=== PATIENT | male | born 1965 | race Caucasian/White ===

== ENCOUNTER 2020-07-24 16:55 | Outpatient (CLI) | payer BC, SELFPAY ==
[2020-07-24 17:22] LABS: Basophils Absolute Auto 0.1 K/mm3 (0.0-0.1); Basophils Percent Auto 0.7 % (0.2-1.2); Eosinophils Absolute Auto 0.2 K/mm3 (0-0.3); Eosinophils Percent Auto 1.9 % (0-4.4); Hematocrit 43.5 % (42.0-52.0); Hemoglobin 14.8 g/dL (14.0-18.0); Immature Granulocyte Absolute 0.02 K/mm3 (0.00-0.031); Immature Granulocyte Percent A 0.2 % (0-0.5); Lymphocytes Absolute Auto 2.23 K/mm3 (0.9-3.2); Lymphocytes Percent Auto 26.6 % (18.3-44.2); Mean Corpuscular Volume 85.1 fl (80-100); Mean Platelet Volume 10.9 fl (7.4-10.4); Monocytes Absolute Auto 0.9 K/mm3 (0.1-0.6); Monocytes Percent Auto 10.9 % (2.6-8.5); Neutrophils Percent Auto 59.7 % (45.5-73.1); Platelet Count Result 231 k/mm3 (150-375); Red Blood Count 5.11 M/mm3 (4.6-6.20); Red Cell Distribution Width 13.7 % (11.5-14.5); White Blood Count 8.4 K/mm3 (4.5-10.0)
[2020-07-24 17:34] LABS: Alanine Aminotransferase 21 U/L (4-50); Albumin Level 4.1 g/dL (3.5-5.1); Alkaline Phosphatase 73 U/L (38-126); Amylase 48 U/L (30-110); Anion Gap 5 mmol/L (8-16); Aspartate Amino Transferase 22 U/L (17-59); Bilirubin,Total 0.5 mg/dL (0.2-1.3); Blood Urea Nitrogen 19 mg/dL (9-20); Calcium 8.8 mg/dL (8.4-10.2); Carbon Dioxide 27 mmol/L (22-30); Chloride 105 mmol/L (98-107); Estimated Glomerular Filt Rate > 60; Glucose 93 mg/dL (75-110); Lipase 35 U/L (23-300); Potassium 3.7 mmol/L (3.4-5.0); Sodium 137 mmol/L (137-145)
== END 2020-07-24 16:56 | disposition home or self-care (01) ==
LOC: ANHLAB 16:58
PROVIDERS: PCP Internal Medicine; Visit Provider Internal Medicine
DX: K92.1 Melena (principal); R10.13 Epigastric pain
CPT/HCPCS: 36415; 80053; 82150; 83690; 85025

== ENCOUNTER 2021-01-28 17:00 | Emergency (ER) | payer BC, SELFPAY ==
[2021-01-28 17:18] VITALS: BP 155/88; PULSE 65; RESP 16; TEMP 36.4; O2SAT 99
--- NOTE | 2021-01-28 17:53 | ED.GENADULT ---
HPI - General Adult General Chief complaint: Wound/Laceration Stated complaint: finger laceration Time Seen by Provider: 01/28/21 17:20 Source: patient Mode of arrival: ambulatory Limitations: no limitations History of Present Illness HPI narrative: Patient presents with chief complaint of laceration to the tip of his right third digit that he sustained while using a razor blade. Patient reports bleeding to the area. 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 Patient states that he is not up-to-date on his tetanus. Patient denies any other injuries or symptoms. Patient states that he is not on any blood thinners. Related Data Home Medications Medication Instructions Recorded Confirmed amlodipine 01/28/21 01/28/21 omeprazole 01/28/21 Allergies Allergy/AdvReac Type Severity Reaction Status Date / Time codeine Allergy Intermediate STOMACH Verified 06/17/18 08:53 CRAMPS Review of Systems Review of Systems: Narrative: CONSTITUTIONAL: Denies fever, chills, or sweats. EYES: Denies visual changes, redness, or discharge. ENT: Denies rhinorrhea, congestion, sore throat, or otalgia. CARDIOVASCULAR: Denies chest pain, palpitations, or edema. RESPIRATORY: Denies cough or dyspnea. GASTROINTESTINAL: Denies abdominal pain, nausea, vomiting, or diarrhea. GENITOURINARY: Denies dysuria or hematuria. SKIN: Reports laceration Denies rash or itching. MUSCULOSKELETAL: Denies back pain, myalgia, or joint pain NEUROLOGIC: Denies headache, numbness, dizziness, or weakness. PSYCHIATRIC: Denies anxiety or depression. [facility] Social History Social History Gender identity (if verbalized by the patient): Male Exam Narrative: Exam Narrative: GENERAL: Well-appearing, well-nourished. HEAD: Normocephalic, atraumatic. EYES: PERRLA and EOMI. NECK: Supple. No adenopathy or masses. No vertebral tenderness or loss of ROM. CHEST: Clear to auscultation. No respiratory distress. No wheezes rales or rhonchi HEART: Regular rate and rhythm. Normal peripheral pulses. EXTREMITIES: No acute changes in ROM. No edema. SKIN: avulsion laceration to the distal tip of the right 3rd digit. Active bleeding. right 4th and fifth digits are absent, dry, no rash. NEURO: No focal deficits. Alert and oriented x3. PSYCH: Normal mood and affect. Course Vital Signs Vital signs: Vital Signs Temperature 97.6 F 01/28/21 17:18 Pulse Rate 65 01/28/21 17:18 Respiratory Rate 16 01/28/21 17:18 Blood Pressure 155/88 H 01/28/21 17:18 Pulse Oximetry 99 01/28/21 17:18 Temperature 97.6 F 01/28/21 17:18 Pulse Rate 65 01/28/21 17:18 Respiratory Rate 16 01/28/21 17:18 Blood Pressure 155/88 H 01/28/21 17:18 Pulse Oximetry 99 01/28/21 17:18 Medical Decision Making MDM Narrative Medical decision making narrative: Surgicel applied to area of laceration as it is an avulsion and there is not any area to suture. Pressure dressing applied as there is still some bleeding. Patient instructed to keep dressing in place for 24 hours then given wound care instructions. Patient given his Tdap injection. Patient instructed to follow-up with primary care for any signs of infection present. Patient instructed to return to emergency department if he has any emergent symptoms. Vital Signs Vital Signs: Vital Signs Temperature 97.6 F 01/28/21 17:18 Pulse Rate 65 01/28/21 17:18 Respiratory Rate 16 01/28/21 17:18 Blood Pressure 155/88 H 01/28/21 17:18 Pulse Oximetry 99 01/28/21 17:18 Temperature 97.6 F 01/28/21 17:18 Pulse Rate 65 01/28/21 17:18 Respiratory Rate 16 01/28/21 17:18 Blood Pressure 155/88 H 01/28/21 17:18 Pulse Oximetry 99 01/28/21 17:18 Discharge Plan Discharge Clinical Impression: Avulsion of skin Patient Disposition: Home, Self-Care Condition: Improved Instructions: Antibiotic Form, Skin Avulsion (ED) Additional Instruction
[2021-01-28] MEDS: TETANUS,DIPHTHERIA,AC PERTUSSIS ADULT (0.5 ML) BOOSTRIX IM (17:59)
== END 2021-01-28 18:40 | disposition home or self-care (01) ==
PROVIDERS: Emergency Provider Emergency Medicine; PCP Internal Medicine
DX: S61.212A Laceration without foreign body of right middle finger without damage to nail, initial encounter (principal); W26.8XXA Contact with other sharp object(s), not elsewhere classified, initial encounter; Z23 Encounter for immunization
CPT/HCPCS: 90471; 90715; 99282